=== PATIENT | female | born 2005 | race Caucasian/White ===

== ENCOUNTER 2023-01-17 11:26 | Emergency (ER) | payer MEDICAID, SELFPAY ==
[2023-01-17 11:36] VITALS: BP 124/84; PULSE 80; RESP 18; TEMP 36.4; O2SAT 96
--- NOTE | 2023-01-17 12:07 | ED_ITS ---
HPI - Abdominal Pain General: Chief Complaint: Abdominal Pain Stated Complaint: appendix Time Seen by Provider: 01/17/23 12:04 History of Present Illness: Ms Heath is a 17-year-old lady without significant past medical history presenting to the ER for abdominal pain. She reports gradual onset of symptoms approximately 1 week ago without known specific provoking event. Since that time has had pain most of the time without specific provoking or exacerbating activities. She has noticed a loose stools. Intensity symptoms is moderate. Course has worsened. No other specific changes in health, exacerbating, or alleviating factors identified. Onset (ago): week(s) Pain Consistency: constant Location: RUQ Severity: moderate Quality: cramping and aching Radiation: none Migration to: no migration Exacerbating factors: nothing Relieving factors: nothing Associated Symptoms: Reports nausea and other; Denies chills, dysuria and hematuria Review of Systems General: Reports: 10 or more systems reviewed and unremarkable except in HPI and below Const: Denies: chills GI: Reports: nausea and other : Denies: dysuria or hematuria PFS ED PFSH: Medical History (Updated 01/25/23 @ 00:01 by JUMA Elaine) No significant past medical history Surgical History (Updated 01/17/23 @ 12:32 by Arturo Chambers MD) No significant past surgical history Physical Exam Const: COMMON NORMALS: alert GENERAL APPEARANCE: cooperative and well developed HENMT: COMMON NORMALS: normocephalic and atraumatic HEAD & SCALP: normocephalic and atraumatic Eye: COMMON NORMALS: conjunctivae normal CONJUNCTIVA: Yes conjunctivae normal SCLERA: sclerae normal Neck/C-Spine: COMMON NORMALS: supple GENERAL: Yes trachea midline Resp: COMMON NORMALS: clear to auscultation bilaterally EFFORT & INSPECTION: Yes able to speak in complete sentences AUSCULTATION: clear to auscultation bilaterally Cardio: COMMON NORMALS: regular rate and regular rhythm RATE: regular rate RHYTHM: regular rhythm GI: COMMON NORMALS: Soft to palpation PALPATION: Yes Soft to palpation, Yes Tenderness to palpation present (GI) Details: RUQ, No Guarding due to palpation present (GI) and No Rigid due to palpation Extremity: GENERAL: Yes normal exam except as noted and No edema Neuro: COMMON NORMALS: moves all extremities SENSORIUM/ORIENTATION: Yes alert and No Orientation impaired Psych: COMMON NORMALS: mental status grossly normal and Normal thought process present THOUGHT PROCESS: Normal thought process present Course Vital Signs: Vital signs: Vital Signs Temperature 97.6 F 01/17/23 11:36 Pulse Rate 80 01/17/23 11:36 Respiratory Rate 18 01/17/23 11:36 Blood Pressure 124/84 01/17/23 11:36 Pulse Oximetry 96 01/17/23 11:36 Oxygen Delivery Me thod Room Air 01/17/23 11:36 MDM - Abdominal Pain Medical Decision Making 17-year-old female presenting to the emergency department with abdominal pain and associated symptoms. Exam as above. There is abdominal tenderness without evidence of acute surgical abdomen and the patient is nontoxic. Laboratory studies with no leukocytosis, normocytic anemia, normal platelet count. Negative hCG and metabolic panel is unremarkable. No evidence of urinary tract infection. Ultrasound negative for acute pathology. Results of ED evaluation were discussed with the patient. She is comfortable foregoing additional imaging as I do not feel that additional imaging is appropriate at this time given risk of radiation exposure and low clinical suspicion. She feels improved with analgesia and IV fluids. The results of ED evaluation were discussed with the patient including prescriptions and/or symptomatic cares (if applicable) including appropriate and responsible use, followup plan, and return precautions. The patient verbalized understanding and felt safe for discharge. Medical Records I reviewed the patient's medical records. Lab Data I reviewed the patient's lab results. 01/17/23 13:00 01/17/23 13:00 Labs/Radiology: Radiology Impressions Gallbladder Ultrasound 01/17/23 13:41 IMPRESSION: No pathologic findings. Laboratory Results WBC 6.5 10^3/uL (4.5-13.0) 01/17/23 13:00 RBC 4.28 10^6/uL (4.1-5.3) 01/17/23 13:00 Hgb 11.2 g/dL (11.5-15.3) L 01/17/23 13:00 Hct 36.0 % (37.0-47.0) L 01/17/23 13:00 MCV 84.1 fl (81-99) 01/17/23 13:00 MCH 26.2 pg (28.0-34.0) L 01/17/23 13:00 MCHC 31.1 g/dL (30.0-36.0) 01/17/23 13:00 RDW 14.8 % (12.1-15.1) 01/17/23 13:00 Plt Count 368 10^3/cmm (130-400) 01/17/23 13:00 MPV 8.8 fL (7.4-10.4) 01/17/23 13:00 Neut % (Auto) 61.8 % 01/17/23 13:00 Lymph % (Auto) 27.4 % 01/17/23 13:00 Mcdonough % (Auto) 6.7 % 01/17/23 13:00 Eos % (Auto) 3.1 % 01/17/23 13:00 Baso % (Auto) 0.8 % 01/17/23 13:00 Neut # (Auto) 4.04 10^3/uL (1.8-8.0) 01/17/23 13:00 Lymph # (Auto) 1.8 10^3/uL (1.5-6.5) 01/17/23 13:00 Mcdonough # (Auto) 0.4 10^3/uL (0.2-0.9) 01/17/23 13:00 Eos # (Auto) 0.2 10^3/uL (0.0-0.8) 01/17/23 13:00 Baso # (Auto) 0.1 10^3/uL (0.0-0.1) 01/17/23 13:00 Nucleated RBC % (auto) 0 % 01/17/23 13:00 Nucleated RBCs # 0.0 /100WBC 01/17/23 13:00 Sodium 138 mmol/L (136-145) 01/17/23 13:00 Potassium 4.1 mmol/L (3.5-5.1) 01/17/23 13:00 Chloride 103 mmol/L (98-107) 01/17/23 13:00 Carbon Dioxide 24 mmol/L (22-29) 01/17/23 13:00 Anion Gap 15.1 (5-19) 01/17/23 13:00 BUN 15 mg/dL (6-20) 01/17/23 13:00 Creatinine 0.8 mg/dL (0.5-0.9) 01/17/23 13:00 GFR Calculation 92.4 mL/min (90-130) 01/17/23 13:00 Glucose 82 mg/dL (65-115) 01/17/23 13:00 Calculated Osmolality 286 mOsm/kg (285-295) 01/17/23 13:00 Calcium 9.0 mg/dL (8.5-10.5) 01/17/23 13:00 Total Bilirubin 0.2 mg/dL (0.15-1.2) 01/17/23 13:00 AST 13 U/L (0-32) 01/17/23 13:00 ALT 17 U/L (0-33) 01/17/23 13:00 Alkaline Phosphatase 77 U/L (35-105) 01/17/23 13:00 Total Protein 7.1 g/dL (6.6-8.7) 01/17/23 13:00 Albumin 3.8 g/dL (3.5-5.2) 01/17/23 13:00 Globulin 3.3 g/dL (1.3-4.6) 01/17/23 13:00 Lipase 36 U/L (13-60) 01/17/23 13:00 HCG, Qual Negative (Negative) 01/17/23 13:00 Urine Color Yellow (Yellow) 01/17/23 13:00 Urine Appearance Clear (CLEAR) 01/17/23 13:00 Urine pH 6 (5-7) 01/17/23 13:00 Ur Specific [place] 1.015 (1.005-1.030) 01/17/23 13:00 Urine Protein Neg (Negative) 01/17/23 13:00 Urine Glucose (UA) Norm (Normal) 01/17/23 13:00 Urine Ketones Negative (Negative) 01/17/23 13:00 Urine Blood Neg (Negative) 01/17/23 13:00 Urine Nitrate Negative (Negative) 01/17/23 13:00 Urine Bilirubin Neg (Negative) 01/17/23 13:00 Urine Urobilinogen Norm mg/dL (Negative) 01/17/23 13:00 Ur Leukocyte Esterase Negative (Negative) 01/17/23 13:00 Discharge Plan Discharge Patient Disposition: Home Clinical Impression: Abdominal pain Condition: Stable Prescriptions: New dicyclomine 10 mg capsule 10 mg PO TID PRN (Reason: abdominal discomfort) Qty: 20 0RF Discharge Orders: Discharge ED (Routine); Ordered 01/17/23 Ordered By: Arturo Chambers Referrals: Izabella Quiroga APN [Referring] - Lee Casey MD [Primary Care Provider] - Discharge Diet: Advance as tolerated and Clear Liquid Discharge Activity: Increase activity as tolerated Patient Instructions: Abdominal Pain (ED), Opioid Safety Activity Restrictions/Additional Instructions: Thank you for visiting the emergency department. You were seen and evaluated for abdominal pain. The exact cause of your symptoms is unclear though does not appear to need hospitalization at this time. I recommend starting clear liquid diet and advancing with bland foods as tolerated. I will prescribe medication for abdominal pain as well as proton pump inhibitor. You may use [id number] medications such as acetaminophen and ibuprofen for pain however please do not exceed the daily recommended dosage as listed on the packaging and please keep in mind that many namebrand medications contain the same active ingredients. Please avoid these medications if previously instructed to do so by another physician due to other underlying medical condition. Return to the emergency department for uncontrolled symptoms or anything else that you are concerned about and feel needs emergency department evaluation. Coding Level of Care Code ED [employer] [facility] [employer]
[2023-01-17 13:09] LABS: Basophils # 0.1 10^3/uL (0.0-0.1); Basophils % 0.8 %; Eosinophils # 0.2 10^3/uL (0.0-0.8); Eosinophils % 3.1 %; Hemoglobin 11.2 g/dL (11.5-15.3); Lymphocytes # 1.8 10^3/uL (1.5-6.5); Lymphocytes % 27.4 %; Mean Corpuscular HGB Conc 31.1 g/dL (30.0-36.0); Mean Corpuscular Hemoglobin 26.2 pg (28.0-34.0); Mean Corpuscular Volume 84.1 fl (81-99); Mean Platelet Volume 8.8 fL (7.4-10.4); Monocytes # 0.4 10^3/uL (0.2-0.9); Monocytes % 6.7 %; Neutrophils # 4.04 10^3/uL (1.8-8.0); Neutrophils % 61.8 %; Nucleated Red Blood Cells % 0 %; Platelet Count 368 10^3/cmm (130-400); Red Blood Count 4.28 10^6/uL (4.1-5.3); Red Cell Distribution Width 14.8 % (12.1-15.1); White Blood Count 6.5 10^3/uL (4.5-13.0)
[2023-01-17 13:17] LABS: Add Urine Microscopic? NO; Charge for UA Resulting for Rev
[2023-01-17 13:23] LABS: HCG, Serum Qual Negative (Negative)
[2023-01-17 13:24] LABS: Bilirubin Urine Neg (Negative); Blood Urine Neg (Negative); Glucose Urine UA Norm (Normal); Ketones Urine Negative (Negative); Leukocyte Esterase Urine Negative (Negative); Nitrate Urine Negative (Negative); Protein Urine Neg (Negative); Specific Gravity, Urine 1.015 (1.005-1.030); Urine Appearance Clear (CLEAR); Urine Color Yellow (Yellow); Urobilinogen Urine Norm (Negative); pH Urine 6 (5-7)
[2023-01-17 13:29] LABS: Alanine Aminotransferase 17 U/L (0-33); Albumin Level 3.8 g/dL (3.5-5.2); Alkaline Phosphatase 77 U/L (35-105); Anion Gap 15.1 (5-19); Aspartate Amino Transferase 13 U/L (0-32); Blood Urea Nitrogen 15 mg/dL (6-20); Carbon Dioxide 24 mmol/L (22-29); Chloride 103 mmol/L (98-107); Globulin 3.3 g/dL (1.3-4.6); Glomerular Filtration Rate 92.4 mL/min (90-130); Glucose 82 mg/dL (65-115); Lipase 36 U/L (13-60); Osmolality Calculated 286 mOsm/kg (285-295); Potassium 4.1 mmol/L (3.5-5.1); Sodium 138 mmol/L (136-145); Total Bilirubin 0.2 mg/dL (0.15-1.2); Total Protein 7.1 g/dL (6.6-8.7)
--- NOTE | 2023-01-17 13:41 | USR_ITS ---
PROCEDURE INFORMATION: Exam: US Abdomen, Limited; Right Upper Quadrant Exam date and time: 01/17/2023 1:58 PM Age: 17 years old Clinical indication: Abdominal pain; Acute; Additional info: Ruq pain TECHNIQUE: Imaging protocol: Real time ultrasound of the abdomen with image documentation. Limited exam focused on the right upper quadrant. COMPARISON: No relevant prior studies available. FINDINGS: Liver: The liver is suboptimally visualized due to shadowing from the overlying ribs. No gross liver abnormality is seen. Gallbladder: The gallbladder is normal. There are no stones. There is no wall thickening or pericholecystic fluid. Information regarding sonographic Rivera sign was not provided. Biliary ducts: The common bile duct is nondilated measuring 3 mm. Pancreas: The visible portion of the pancreas is unremarkable. The majority of the pancreas is obscured. Right kidney: The right kidney is unremarkable. Aorta: The upper abdominal aorta is unremarkable. Inferior vena cava: The upper IVC is unremarkable. Portal venous: The portal vein is patent. US/US gall bladder [id number] IMPRESSION: No pathologic findings.
[2023-01-17] MEDS: morphine 4 mg/mL SDV 1 mL IVP (14:06)
[2023-01-17] MEDS: sodium chloride 0.9% 1,000 ML 999 ML IV (14:06)
== END 2023-01-17 15:46 | disposition home or self-care (01) ==
PROVIDERS: Emergency Provider Emergency Medicine; PCP Family Medicine
DX: R10.11 Right upper quadrant pain (principal)
CPT/HCPCS: 76705; 80053; 81003; 83690; 84703; 85025; 96374; 99284; J2270; J7030